=== PATIENT | female | born 1985 | race Caucasian/White ===

== ENCOUNTER 2020-01-08 10:35 | Outpatient (CLI) | payer OTHER, SELFPAY ==
[2020-01-08 11:17] LABS: Immunoglobulin A < 40 mg/dL (70-400)
== END 2020-01-08 10:36 | disposition home or self-care (01) ==
PROVIDERS: PCP Internal Medicine
DX: D83.9 Common variable immunodeficiency, unspecified (principal)
CPT/HCPCS: 36415; 82784

== ENCOUNTER 2020-05-08 12:37 | Outpatient (CLI) | payer OTHER, SELFPAY ==
[2020-05-08 13:22] LABS: Hematocrit 39.7 % (37.0-47.0); Hemoglobin 13.2 g/dL (12.0-15.0); Mean Corpuscular HGB Conc 33.2 g/dl (32-36); Mean Corpuscular Hemoglobin 29.9 pg (26-34); Platelet Count Result 210 k/mm3 (150-375); Red Blood Count 4.41 M/mm3 (4.2-5.4); Red Cell Distribution Width 12.2 % (11.5-14.5); White Blood Count 6.7 K/mm3 (4.5-10.0)
[2020-05-08 13:29] LABS: Urine Cotinine NEGATIVE
[2020-05-08 14:29] LABS: Alanine Aminotransferase 15 U/L (4-35); Albumin Level 4.7 g/dL (3.5-5.1); Alkaline Phosphatase 67 U/L (38-126); Anion Gap 10 mmol/L (8-16); Aspartate Amino Transferase 25 U/L (14-36); Bilirubin,Total 0.6 mg/dL (0.2-1.3); Blood Urea Nitrogen 12 mg/dL (7-17); CRP 1.1 mg/dL (<1.0); Calcium 9.1 mg/dL (8.4-10.2); Carbon Dioxide 26 mmol/L (22-30); Chloride 103 mmol/L (98-107); Estimated Glomerular Filt Rate > 60; Glucose 92 mg/dL (65-105); Potassium 3.3 mmol/L (3.4-5.0); Sodium 139 mmol/L (137-145)
[2020-05-08 14:33] LABS: Erythrocyte Sedimentation Rate 15 mm/hr (0-20)
== END 2020-05-08 12:38 | disposition home or self-care (01) ==
PROVIDERS: PCP Internal Medicine; Visit Provider Internal Medicine Gastroenterology
DX: D83.9 Common variable immunodeficiency, unspecified (principal); R10.30 Lower abdominal pain, unspecified; R14.0 Abdominal distension (gaseous)
CPT/HCPCS: 36415; 80053; 80307; 85027; 85652; 86140

== ENCOUNTER 2020-05-13 07:44 | Outpatient (CLI) | payer OTHER, SELFPAY | END 2020-05-13 07:45 | disposition home or self-care (01) | PROVIDERS: PCP Internal Medicine; Visit Provider Internal Medicine Gastroenterology | DX: R10.30 Lower abdominal pain, unspecified (principal); R19.8 Other specified symptoms and signs involving the digestive system and abdomen | CPT/HCPCS: 87015; 87045; 87046; 87177; 87207; 87209; 87427; 89055 ==

== ENCOUNTER 2020-05-29 14:56 | Outpatient (CLI) | payer OTHER, SELFPAY ==
--- NOTE | ~2020-05-29 | US_ITS ---
EXAMINATION: US abdomen complete DATE: 05/29/2020 15:51 INDICATION: Low abdominal pain. TECHNIQUE: Multiple grayscale and Doppler ultrasound images of the abdomen were obtained. COMPARISON: CT abdomen and pelvis 08/17/2017 FINDINGS: The visualized portions of the head and body of the pancreas are normal. The liver is eusebia l without focal lesion. No liver surface nodularity. There is normal flow in main portal vein. The ga llbladder is normal in size. No gallstones or gallbladder wall thickening. There was no sonographic M urphy sign. The common duct is normal and measures 3 mm. There is mild splenomegaly measuring 13.7 cm . The kidneys are normal in size. Abdominal aorta is normal in caliber. Inferior vena cava is normal. IMPRESSION: 1. Mild splenomegaly, stable from 08/17/2017. Reviewed, dictated and finalized at location A.
== END 2020-05-29 14:57 | disposition home or self-care (01) ==
LOC: ANHIMG 15:02
PROVIDERS: PCP Internal Medicine; Visit Provider Internal Medicine Gastroenterology
DX: R10.30 Lower abdominal pain, unspecified (principal); R14.0 Abdominal distension (gaseous); R19.8 Other specified symptoms and signs involving the digestive system and abdomen
CPT/HCPCS: 76700

== ENCOUNTER 2020-05-30 00:37 | Outpatient (CLI) | payer OTHER, SELFPAY ==
[2020-05-30 17:48] LABS: SARS-CoV-2 RNA PCR Negative
== END 2020-05-30 00:38 | disposition home or self-care (01) ==
LOC: ANHCOVIDDT 00:37
PROVIDERS: PCP Internal Medicine; Visit Provider Internal Medicine Gastroenterology
DX: Z01.812 Encounter for preprocedural laboratory examination (principal); Z20.828 Contact with and (suspected) exposure to other viral communicable diseases
CPT/HCPCS: 87635; C9803; U0003

== ENCOUNTER 2020-06-02 02:10 | Day surgery (SDC) | payer OTHER, SELFPAY ==
[2020-05-26 14:15] VITALS: BMI 31.2
[2020-06-02 07:01] VITALS: BP 124/86; PULSE 87; RESP 18; TEMP 36.3; O2SAT 99; BMI 33.0
[2020-06-02] MEDS: LACTATED RINGERS 1,000 ML 150 ML IV CONT (07:05)
--- NOTE | 2020-06-02 07:38 | WPDANESEPPF ---
Anes - Initial Pre Proc Eval Procedure: Operation Date: 06/02/20 08:00 Proposed Procedures p Esophagogastroduodenoscopy & Colonoscopy - Iván Dewitt MD Date/Time: 06/02/20 07:38 Surgeon: Iván Dewitt MD Pre Op Diagnosis: Lower Abdominal Pain, Bloating, Abdominal Distenti Patient Data Age: 34 Gender: F Height: 5 ft 3 in Weight: 84.5 kg Last Vital Signs Temp 97.3 F L 06/02/20 07:01 Pulse 87 06/02/20 07:01 Resp 18 06/02/20 07:01 BP 124/86 06/02/20 07:01 Pulse Ox 99 06/02/20 07:01 Allergies Allergy/AdvReac Type Severity Reaction Status Date / Time No Known Allergies Allergy Verified 06/02/20 06:58 Patient hx anesthesia problems: none Family hx anesthesia problems: none PMFSH Past Medical History Medical History (Updated 05/08/20 @ 12:06 by Iván Dewitt MD) Alternating constipation and diarrhea Bloating Common variable immunodeficiency Lower abdominal pain Social History Social History Smoking status: Never smoker Alcohol use details: RARELY Substance use: never Substance use type: does not use Living arrangements: with family Spiritual care concerns: No Anes - Eval Final PreProcedure Day of Procedure 06/02/20 07:38 Patient weight: overweight Heart: regular rate and rhythm Lungs: clear to auscultation Airway: Mallampati scale class II Neurological: alert and oriented Last oral intake: >/= 8 hours ASA classification: II Emergent: no Anesthetic plan: proceed Anesthesia type and monitoring: general GIVS and standard monitoring Informed Consent: The patient's anesthetic plan and its attendant risks and benefits were discussed with the patient/family/POA. Questions were solicited and answers provided to the satisfaction of the patient/family/POA.
--- NOTE | 2020-06-02 07:58 | WPDHPUPDATE1 ---
History and Physical Update Update Date/Time: 06/02/20 07:58 History and Physical has been reviewed, including an updated exam of the patient. There are NO changes in the patient's condition. Risks, benefits, and alternatives have been discussed and questions answered. Patient agrees to proceed with procedure.
[2020-06-02 08:43] VITALS: BP 93/35; PULSE 72; RESP 18; O2SAT 97
[2020-06-02 08:53] VITALS: BP 97/69; PULSE 63; RESP 18; O2SAT 97
[2020-06-02 09:03] VITALS: BP 104/46; PULSE 63; RESP 18; O2SAT 97
== END 2020-06-02 09:12 | disposition home or self-care (01) ==
PROVIDERS: PCP Internal Medicine; Visit Provider Internal Medicine Gastroenterology
PROC: 0DJ08ZZ Inspection of Upper Intestinal Tract, Via Natural or Artificial Opening Endoscopic (ICD-10-PCS; CPT 43235; principal; 2020-06-02 08:00)
DX: R10.84 Generalized abdominal pain (principal); R19.7 Diarrhea, unspecified; K59.00 Constipation, unspecified; K29.50 Unspecified chronic gastritis without bleeding
CPT/HCPCS: 43239; 45380; 88305; J2704; J7120

== ENCOUNTER 2022-09-12 15:36 | Outpatient (CLI) | payer OTHER, SELFPAY ==
[2022-09-12 18:44] LABS: Immunoglobulin G 863 mg/dL (700-1600)
== END 2022-09-12 15:37 | disposition home or self-care (01) ==
LOC: ANHLAB 15:39
PROVIDERS: PCP Internal Medicine
DX: D83.9 Common variable immunodeficiency, unspecified (principal)
CPT/HCPCS: 36415; 82784

== ENCOUNTER 2022-10-04 11:31 | Outpatient (CLI) | payer OTHER, SELFPAY ==
--- NOTE | ~2022-10-04 | XR_ITS ---
EXAMINATION: XR chest 2V DATE: 10/04/2022 12:12 INDICATION: Cough TECHNIQUE: Frontal and lateral views of the chest are obtained COMPARISON: 10/16/2019 FINDINGS: The lungs are free of acute opacities. No pleural effusion or pneumothorax. The cardiomedia stinal silhouette is normal. There is mild thoracic spondylosis. There is mild chronic anterior wedgi ng of lower thoracic vertebral bodies. IMPRESSION: 1. No acute cardiopulmonary abnormality. Reviewed, dictated and finalized at location L. ER MANAGER
[2022-10-04 11:56] LABS: Hematocrit 42.7 % (35.0-49.0); Hemoglobin 13.9 g/dL (12.0-15.0); Immature Granulocyte Absolute 0.02 K/mm3 (0.00-0.00); Immature Granulocyte Percent A 0.3 % (0.0-0.0); Lymphocytes Absolute Auto 0.67 K/mm3 (1.10-4.50); Lymphocytes Percent Auto 9.9 % (18.0-42.0); Mean Corpuscular HGB Conc 32.6 g/dL (32.0-36.0); Mean Corpuscular Hemoglobin 29.6 pg (27.0-31.0); Mean Platelet Volume 10.8 fl (9.2-11.8); Monocytes Absolute Auto 0.62 K/mm3 (0.10-0.90); Monocytes Percent Auto 9.1 % (2.0-11.0); Neutrophils Absolute Auto 5.5 K/mm3 (1.7-7.2); Neutrophils Percent Auto 80.7 % (50.0-70.0); Platelet Count Result 196 K/mm3 (150-420); Red Blood Count 4.69 M/mm3 (4.20-5.40); Red Cell Distribution Width 12.4 % (11.6-14.4); White Blood Count 6.8 K/mm3 (4.8-10.8)
[2022-10-04 12:10] LABS: Alanine Aminotransferase 24 U/L (14-59); Albumin Level 4.3 g/dL (3.4-5.0); Alkaline Phosphatase 72 U/L (46-116); Anion Gap 9 mmol/L (8-16); Aspartate Amino Transferase 15 U/L (15-37); Bilirubin,Total 0.6 mg/dL (0.00-1.00); Blood Urea Nitrogen 8 mg/dL (7-18); Calcium 8.7 mg/dL (8.5-10.1); Carbon Dioxide 29 mmol/L (21-32); Chloride 102 mmol/L (98-108); Estimated Glomerular Filt Rate > 60; Glucose 109 mg/dL (70-99); Osmolality Calculated 289 mOsm/kg (285-295); Potassium 3.5 mmol/L (3.5-5.1); Sodium 140 mmol/L (136-145); Total Protein 7.7 g/dL (6.4-8.2)
== END 2022-10-04 11:32 | disposition home or self-care (01) ==
LOC: CHSLAB 11:33
PROVIDERS: PCP Internal Medicine; Visit Provider Internal Medicine
DX: R05.9 Cough, unspecified (principal)
CPT/HCPCS: 36415; 71046; 80053; 85025

== ENCOUNTER 2022-11-14 07:56 | Outpatient (CLI) | payer OTHER, SELFPAY ==
--- NOTE | ~2022-11-14 | CT_ITS ---
EXAMINATION: CT sinus wo con DATE: 11/14/2022 08:15 INDICATION: Chronic sinusitis TECHNIQUE: Computed tomography (CT) of the paranasal sinuses was performed without intravenous contra st. Coronal reconstructions were obtained. Iterative reconstruction technique was employed. The dose- length product was 203.72 mGy-cm. COMPARISON: None FINDINGS: Moderate mucosal thickening and mild sclerotic wall thickening at the left maxillary sinus consistent with chronic sinusitis. Mild mucosal thickening in the right maxillary and bilateral ethmoid sinuses . Ostiomeatal units are patent bilaterally. Mild leftward bowing of the nasal septum which parallels the contours of the turbinates. There is also a leftward osseous spike along the nasal septum. Orbits are normal. Mastoid air cells and middle ear cavities are clear. IMPRESSION: 1. Stigmata of chronic sinusitis in the left maxillary sinus where there is moderate mucosal thickeni ng. Mild mucosal thickening in the right maxillary and bilateral ethmoid sinuses. Reviewed, dictated and finalized at location B. IMPRESSION: 1. Stigmata of chronic sinusitis in the left maxillary sinus where there is mod erate mucosal thickening. Mild mucosal thickening in the right maxillary and bi lateral ethmoid sinuses.
== END 2022-11-14 07:57 | disposition home or self-care (01) ==
PROVIDERS: PCP Internal Medicine; Visit Provider Internal Medicine
DX: J32.9 Chronic sinusitis, unspecified (principal)
CPT/HCPCS: 70486

== ENCOUNTER 2023-03-20 12:22 | Outpatient (RCR) | payer OTHER, SELFPAY ==
[2023-03-20 13:47] LABS: Immunoglobulin G 735 mg/dL (700-1600)
== END 2023-06-18 23:59 | disposition home or self-care (01) ==
LOC: ANHLAB 12:22
PROVIDERS: PCP Internal Medicine
DX: D83.9 Common variable immunodeficiency, unspecified (principal)
CPT/HCPCS: 36415; 82784

== ENCOUNTER 2023-03-23 10:37 | Outpatient (CLI) | payer OTHER, SELFPAY ==
[2023-03-23 11:50] LABS: Immunoglobulin G 1322 mg/dL (700-1600)
== END 2023-03-23 10:38 | disposition home or self-care (01) ==
LOC: ANHLAB 10:40
PROVIDERS: PCP Internal Medicine
DX: D83.9 Common variable immunodeficiency, unspecified (principal)
CPT/HCPCS: 36415; 82784

== ENCOUNTER 2023-03-30 12:21 | Outpatient (CLI) | payer OTHER, SELFPAY ==
[2023-03-30 13:57] LABS: Hematocrit 39.9 % (37.0-47.0); Hemoglobin 13.2 g/dL (12.0-15.0); Immature Granulocyte Absolute 0.01 K/mm3 (0.00-0.031); Immature Granulocyte Percent A 0.2 % (0-0.5); Lymphocytes Absolute Auto 1.61 K/mm3 (0.9-3.2); Lymphocytes Percent Auto 37.4 % (18.3-44.2); Mean Corpuscular HGB Conc 33.1 g/dl (32-36); Mean Corpuscular Hemoglobin 30.2 pg (26-34); Mean Corpuscular Volume 91.3 fl (80-100); Monocytes Absolute Auto 0.4 K/mm3 (0.1-0.6); Monocytes Percent Auto 8.6 % (2.6-8.5); Neutrophils Absolute Auto 2.3 K/mm3 (1.3-6.7); Neutrophils Percent Auto 53.8 % (45.5-73.1); Platelet Count Result 173 k/mm3 (150-375); Red Blood Count 4.37 M/mm3 (4.2-5.4); Red Cell Distribution Width 12.3 % (11.5-14.5); White Blood Count 4.3 K/mm3 (4.5-10.0)
[2023-03-30 14:12] LABS: Alanine Aminotransferase 26 U/L (6-35); Albumin Level 4.4 g/dL (3.5-5.1); Alkaline Phosphatase 48 U/L (38-126); Anion Gap 8 mmol/L (8-16); Aspartate Amino Transferase 30 U/L (14-36); Bilirubin,Total 0.4 mg/dL (0.2-1.3); Blood Urea Nitrogen 13 mg/dL (7-17); Carbon Dioxide 26 mmol/L (22-30); Chloride 102 mmol/L (98-107); Estimated Glomerular Filt Rate > 60; Glucose 86 mg/dL (65-110); Potassium 3.5 mmol/L (3.4-5.0); Sodium 136 mmol/L (137-145)
[2023-03-30 17:14] LABS: Free T4 Free Thyroxine 1.21 ng/mL (0.78-2.19)
== END 2023-03-30 12:22 | disposition home or self-care (01) ==
PROVIDERS: PCP Internal Medicine
DX: D83.9 Common variable immunodeficiency, unspecified (principal)
CPT/HCPCS: 36415; 80053; 84439; 85025

== ENCOUNTER 2023-08-16 11:14 | Outpatient (CLI) | payer OTHER, SELFPAY ==
[2023-08-16 11:41] LABS: Basophils Absolute Auto 0.01 K/mm3 (0.00-0.10); Basophils Percent Auto 0.1 % (0.0-1.0); Hematocrit 40.4 % (35.0-49.0); Hemoglobin 13.2 g/dL (12.0-15.0); Immature Granulocyte Absolute 0.02 K/mm3 (0.00-0.00); Immature Granulocyte Percent A 0.3 % (0.0-0.0); Lymphocytes Absolute Auto 0.86 K/mm3 (1.10-4.50); Lymphocytes Percent Auto 12.4 % (18.0-42.0); Mean Corpuscular HGB Conc 32.7 g/dL (32.0-36.0); Mean Corpuscular Hemoglobin 29.9 pg (27.0-31.0); Mean Corpuscular Volume 91.4 fL (78.0-102.0); Mean Platelet Volume 10.5 fl (9.2-11.8); Monocytes Absolute Auto 0.69 K/mm3 (0.10-0.90); Monocytes Percent Auto 9.9 % (2.0-11.0); Neutrophils Absolute Auto 5.4 K/mm3 (1.7-7.2); Neutrophils Percent Auto 77.3 % (50.0-70.0); Platelet Count Result 176 K/mm3 (150-420); Red Blood Count 4.42 M/mm3 (4.20-5.40); Red Cell Distribution Width 12.2 % (11.6-14.4)
[2023-08-16 12:00] LABS: Alanine Aminotransferase 23 U/L (14-59); Albumin Level 4.1 g/dL (3.4-5.0); Alkaline Phosphatase 56 U/L (46-116); Anion Gap 6 mmol/L (8-16); Aspartate Amino Transferase 17 U/L (15-37); Bilirubin,Total 0.5 mg/dL (0.00-1.00); Blood Urea Nitrogen 6 mg/dL (7-18); Calcium 8.9 mg/dL (8.5-10.1); Carbon Dioxide 29 mmol/L (21-32); Chloride 100 mmol/L (98-108); Estimated Glomerular Filt Rate > 60; Glucose 92 mg/dL (70-99); Osmolality Calculated 277 mOsm/kg (285-295); Potassium 3.6 mmol/L (3.5-5.1); Sodium 135 mmol/L (136-145); Total Protein 7.3 g/dL (6.4-8.2)
== END 2023-08-16 11:15 | disposition home or self-care (01) ==
LOC: CHSLAB 11:17
PROVIDERS: PCP Internal Medicine; Visit Provider Internal Medicine
DX: R11.0 Nausea (principal); R50.9 Fever, unspecified
CPT/HCPCS: 36415; 80053; 85025

== ENCOUNTER 2023-09-05 15:23 | Outpatient (CLI) | payer OTHER, SELFPAY ==
[2023-09-05 16:09] LABS: Alanine Aminotransferase 17 U/L (6-35); Albumin Level 4.5 g/dL (3.5-5.1); Alkaline Phosphatase 52 U/L (38-126); Anion Gap 8 mmol/L (8-16); Aspartate Amino Transferase 24 U/L (14-36); Bilirubin,Total 0.4 mg/dL (0.2-1.3); Blood Urea Nitrogen 16 mg/dL (7-17); Calcium 9.2 mg/dL (8.4-10.2); Carbon Dioxide 28 mmol/L (22-30); Chloride 102 mmol/L (98-107); Estimated Glomerular Filt Rate > 60; Glucose 84 mg/dL (65-110); Hematocrit 39.9 % (37.0-47.0); Hemoglobin 13.1 g/dL (12.0-15.0); Immature Granulocyte Absolute 0.01 K/mm3 (0.00-0.031); Immature Granulocyte Percent A 0.2 % (0-0.5); Lymphocytes Absolute Auto 2.07 K/mm3 (0.9-3.2); Mean Corpuscular HGB Conc 32.8 g/dl (32-36); Mean Corpuscular Volume 91.3 fl (80-100); Mean Platelet Volume 10.6 fl (7.4-10.4); Monocytes Absolute Auto 0.5 K/mm3 (0.1-0.6); Monocytes Percent Auto 8.3 % (2.6-8.5); Neutrophils Absolute Auto 3.7 K/mm3 (1.3-6.7); Neutrophils Percent Auto 58.5 % (45.5-73.1); Platelet Count Result 226 k/mm3 (150-375); Potassium 3.9 mmol/L (3.4-5.0); Red Blood Count 4.37 M/mm3 (4.2-5.4); Red Cell Distribution Width 12.6 % (11.5-14.5); Sodium 138 mmol/L (137-145); White Blood Count 6.3 K/mm3 (4.5-10.0)
[2023-09-05 16:32] LABS: Immunoglobulin G 689 mg/dL (700-1600)
[2023-09-05 17:32] LABS: Free T4 Free Thyroxine 1.25 ng/mL (0.78-2.19)
== END 2023-09-05 15:24 | disposition home or self-care (01) ==
PROVIDERS: PCP Internal Medicine
DX: D83.9 Common variable immunodeficiency, unspecified (principal)
CPT/HCPCS: 36415; 80053; 82784; 84439; 85025

== ENCOUNTER 2023-09-22 16:10 | Outpatient (CLI) | payer OTHER, SELFPAY ==
--- NOTE | ~2023-09-22 | XR_ITS ---
XR_CERV2-3V_CR DATE: 09/22/2023 16:31 INDICATION: Left neck pain radiating to shoulder and arm TECHNIQUE: AP, open-mouth, lateral views COMPARISON: None FINDINGS: There is mild reversal cervical curvature. C1 and C2 are normally aligned and the odontoid process is intact. No fracture or dislocation or lock ed facet or prevertebral soft tissue swelling. There is minimal anterolisthesis at C4-5. There is minimal loss of height at C5-6 interspace. Remaining cervical interspaces appear well preser shae. Elongated C7 transverse processes. IMPRESSION: Mild reversal of cervical curvature Minimal anterolisthesis at C4-5 Minimal loss of height at C5-6 interspace Reviewed, dictated and finalized at Location A. Reviewed, dictated and finalized at location A. OMER GREETER
== END 2023-09-22 16:11 | disposition home or self-care (01) ==
LOC: CHSIMG 16:12
PROVIDERS: PCP Internal Medicine; Visit Provider Internal Medicine
DX: M54.2 Cervicalgia (principal); M43.8X2 Other specified deforming dorsopathies, cervical region; M43.12 Spondylolisthesis, cervical region
CPT/HCPCS: 72040

== ENCOUNTER 2023-10-09 14:31 | Outpatient (CLI) | payer OTHER, SELFPAY ==
--- NOTE | ~2023-10-09 | MM_ITS ---
EXAMINATION: MM screening kamala BI w katherine HISTORY: Screening mammogram TECHNIQUE: Craniocaudal and mediolateral oblique 3-D tomosynthesis images were obtained and synthetic 2-D images were generated. CAD analysis was submitted and interpreted. COMPARISON: No prior mammogram is available for comparison at this institution. BREAST PARENCHYMAL COMPOSITION: The breasts are heterogeneously dense, which may obscure small masses . FINDINGS: There is no evidence of suspicious mass, calcification, or architectural distortion to sugg est malignancy in either breast. IMPRESSION: 1. No mammographic evidence of malignancy. 2. Recommend routine screening mammography in one year. BI-RADS Category 1: Negative Reviewed, dictated and finalized at location B. MECHANIC
== END 2023-10-09 14:32 | disposition home or self-care (01) ==
LOC: ANHIMG 14:32
PROVIDERS: PCP Internal Medicine; Visit Provider Obstetrics & Gynecology
DX: Z12.31 Encounter for screening mammogram for malignant neoplasm of breast (principal)
CPT/HCPCS: 77063; 77067

== ENCOUNTER 2024-04-09 09:55 | Outpatient (CLI) | payer OTHER, SELFPAY ==
[2024-04-09 11:02] LABS: Immunoglobulin G 902 mg/dL (700-1600)
== END 2024-04-09 09:56 | disposition home or self-care (01) ==
LOC: ANHLAB 09:57
PROVIDERS: PCP Internal Medicine
DX: D83.9 Common variable immunodeficiency, unspecified (principal)
CPT/HCPCS: 36415; 82784

== ENCOUNTER 2024-06-25 13:35 | Outpatient (CLI) | payer OTHER, SELFPAY ==
--- NOTE | ~2024-06-25 | MMUS_ITS ---
EXAMINATION: MM diagnostic kamala LT w katherine, US breast LT limited HISTORY: Palpable left breast lump TECHNIQUE: Additional 3-D tomosynthesis images of the left breast were performed and synthetic 2-D im ages were generated. CAD analysis was submitted and interpreted. High resolution Limited left breast ultrasound was performed. COMPARISON: 10/09/2023 BREAST PARENCHYMAL COMPOSITION: Not dense: There are scattered areas of fibroglandular density. FINDINGS: MAMMOGRAPHIC FINDINGS: There are no suspicious masses, calcifications or architectural distortion in the left breast to sugg est malignancy. ULTRASOUND: Limited left breast ultrasound: Normal heterogeneous echotexture without focal solid or cystic mass. IMPRESSION: 1. No evidence for malignancy in the left breast. 2. Routine yearly screening mammogram and regular clinical breast examination are recommended. BI-RADS Category 1: Negative Reviewed, dictated and finalized at location B. IMPRESSION: 1. No evidence for malignancy in the left breast. 2. Routine yearly screening mammogram and regular clinical breast examination a re recommended. BI-RADS Category 1: Negative
== END 2024-06-25 13:36 | disposition home or self-care (01) ==
LOC: ANHIMG 13:36
PROVIDERS: PCP Internal Medicine; Visit Provider Obstetrics & Gynecology
DX: N63.25 Unspecified lump in the left breast, overlapping quadrants (principal)
CPT/HCPCS: 76642; 77061; 77065; G0279

== ENCOUNTER 2025-01-31 07:34 | Outpatient (CLI) | payer OTHER, SELFPAY ==
--- NOTE | ~2025-01-31 | MM_ITS ---
EXAMINATION: MM screening kamala BI w katherine HISTORY: Screening TECHNIQUE: Craniocaudal and mediolateral oblique 3-D tomosynthesis images were obtained and synthetic 2-D images were generated. CAD analysis was submitted and interpreted. COMPARISON: Comparison to multiple prior studies sequentially, with oldest reviewed study dated 01/2024. BREAST PARENCHYMAL COMPOSITION: Dense: The breasts are heterogeneously dense, which may obscure small masses FINDINGS: There is no evidence of suspicious mass, calcification, or architectural distortion to sugg est malignancy in either breast. There has been no suspicious interval change. IMPRESSION: 1. No mammographic evidence of malignancy. 2. Recommend routine screening mammography in one year. BI-RADS Category 1: Negative Reviewed, dictated and finalized at location A.
--- OUTSIDE RECORDS SUMMARY | 2025-01-31 07:38 | XMS_ITS | Referral Summary ---
Author Organization [facility] Address [address] [place] [address] Care Team Providers Care Automatic Nailing Machine Feeder Name Role Phone Nitza Lamas MD Primary Care Provider [phone] Encounters Date Type Department Care Team Description 01/14/2025 2:45 PM CDT Office Visit [facility] Allergy and Immunology [address] [place] [address] Ruby Mercer MD CVID (common variable immunodeficiency) (HCC) (Primary Dx); Other chronic sinusitis 11/05/2024 Telephone [facility] Allergy and Immunology [address] [place] [address] Allison Horton RN Med Management from Last 3 Months Allergies No known active allergies Medications ibuprofen (ADVIL,MOTRIN) 600 mg tablet as needed 04/04/20 18 Active levonorgestreL (Mirena) IUD Mirena 20 mcg/24 hours (5 yrs) 52 mg intrauterine device Active immune globulin (GAMMAGARD S-D) infusion Infuse 700 mL (35 g total) into a venous catheter every 4 (four) weeks 700 mL 11 11/18/19 23 Active valACYclovir (VALTREX) 500 mg tablet Take 1 tablet (500 mg total) by mouth 2 (two) times a day 30 tablet 5 01/21/20 23 Active fluticasone propionate (FLONASE) 50 mcg/actuation nasal spray Administer 2 sprays into each nostril daily 16 g 11 10/03/19 24 Active montelukast (SINGULAIR) 10 mg tablet 07/22/20 24 Active ondansetron ODT (ZOFRAN-ODT) 4 mg disintegrating tablet Take 1 tablet (4 mg total) by mouth every 8 (eight) hours as needed 12/27/19 25 Active Active Problems Problem Noted Date Diagnosed Date 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 05/11/2018 Non-allergic rhinitis 05/11/2018 Dyspnea 05/11/2018 CVID (common variable immunodeficiency) 01/11/20 18 Cough Immunizations Immunization Administration Dates Next Due Influenza, Quadrivalent, Claudine l Culture-based MDCK, Preservative Free, Antibiotic Free, Intramuscular 07/18/2019 Social History Tobacco Use Types Packs/Day Years Used Date Smoking Tobacco: Never Passive Smoke Exposure: Never Smokeless Tobacco: Never Tobacco Cessation:Counseling Given: Not Answered Comments Unknown Sex and Gender Information Value Date Recorded Sex Assigned at Not on file Legal Sex Female 1:28 PM CDT Gender Identity Not on file Sexual Orientation Not on file Last Filed Vital Signs Vital Sign Reading Time Taken Comments Blood Pressure 121/80 01/14/2025 2:48 PM CDT Pulse 79 01/14/2025 2:48 PM CDT Temperature 36.6 C (97.8 F) 01/14/2025 2:48 PM CDT Respiratory Rate - - Oxygen Saturation 97% 01/14/2025 2:48 PM CDT Inhaled Oxygen Concentration - - Weight 80 kg (176 lb 6.4 oz) 01/14/2025 2:48 PM CDT Height 160 cm (5' 3) 01/14/2025 2:48 PM CDT Body Mass Index 31.25 01/14/2025 2:48 PM CDT Plan of Treatment Not on file Insurance [facility] CHOICE PLUS Care Teams Automatic Nailing Machine Feeder Relationship Specialty Start Date End Date Nitza Lamas MD [address] [place] [address] PCP - General 03/21/17
--- OUTSIDE RECORDS SUMMARY | 2025-01-31 07:38 | XMS_ITS | Clinical Summary ---
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 05/11/2018 Non-allergic rhinitis 05/11/2018 Dyspnea 05/11/2018 CVID (common variable immunodeficiency) 01/11/20 18 Cough Encounters Date Type Department Care Team Description 01/14/2025 2:45 PM CDT Office Visit [facility] Allergy and Immunology [address] [place] [address] Ruslan, Ruby Holm MD CVID (common variable immunodeficiency) (HCC) (Primary Dx); Other chronic sinusitis 11/05/2024 Telephone [facility] Allergy and Immunology [address] [place] [address] Allison Horton RN Med Management from Last 3 Months Immunizations Immunization Administration Dates Next Due Influenza, Quadrivalent, Claudine l Culture-based MDCK, Preservative Free, Antibiotic Free, Intramuscular 07/18/2019 Medical History Medical History Date Comments Other specified postprocedural states History of dilatation and curettage - (Added by TW Conv) Family History Medical History Relation Name Comments Hyperlipidemia Father High choleste rol - (Added by TW Conv) Hypertension Father Family history of hypertension - (Added by TW Conv) Sarcoidosis Father Family history of sarcoidosis - (Added by TW Conv) Diabetes Mother Family history of diabetes mellitus - (Added by TW Conv) Relation Name Status Comments Father Mother Social History Tobacco Use Types Packs/Day Years Used Date Smoking Tobacco: Never Passive Smoke Exposure: Never Smokeless Tobacco: Never Tobacco Cessation:Counseling Given: Not Answered Comments Unknown Sex and Gender Information Value Date Recorded Sex Assigned at Not on file Legal Sex Female 1:28 PM CDT Gender Identity Not on file Sexual Orientation Not on file Obstetrics History Last Filed Vital Signs Vital Sign Reading [...] 01/14/2025 2:48 PM CDT Plan of Treatment Health Maintenance Due Date Last Done Comments Breast Cancer Screening-Mammogram 1983 Cervical Cancer Screening 1983 Depression Screening 1983 Hepatitis C Screening 1983 DTaP/Tdap/Td Vaccine (1 - Tdap) 1994 Varicella Vaccines (1 of 2 - 13+ 2-dose series) 1996 Hepatitis B Screening 2001 Regular Well Visit/Exam 18-64 2001 Zoster Vaccine (1 of 2) 2002 Pneumococcal vaccine <65 (2 of 2 - PCV) 03/21/2018 03/21/2017 Influenza Vaccine (Season Ended) 2025 07/18/2019, 06/25/2018 HPV Vaccines Aged Out No longer eligi ble based on patient's age to complete this topic Insurance [facility]/PP[facility] Address: [address] [address] [place] [address] [facility] CHOICE PLUS [facility] HMO/PPO Address: [address] [address] [place] [address] Care Teams Dope House Operator Helper Relationship Specialty Start Date End Date Nitza Lamas MD [address] [place] [address] PCP - General 03/21/17
--- OUTSIDE RECORDS SUMMARY | 2025-01-31 07:38 | XMS_ITS | Encounter Summary ---
Author Organization [facility] Address [address] [place] [address] Phone Care Team Providers Care Business Systems Manager Name Role Phone Nitza Lamas MD Primary Care Provider [phone] Encounter Details Date Type Department Care Team (Latest Contact Info) Description 03/30/2023 Orders Only [facility] Scanning, Provider Social History Tobacco Use Types Packs/Day Years Used Date Smoking Tobacco: Never Smokeless Tobacco: Never Comments Unknown Sex and Gender Information Value Date Recorded Sex Assigned at Not on file Legal Sex Female 1:28 PM CDT Gender Identity Not on file Sexual Orientation Not on file documented as of this encounter Plan of Treatment Not on file documented as of this encounter Procedures Procedure Name Priority Date/Time Associated Diagnosis Comments SCAN - LABS 03/30/2023 documented in this encounter Results * SCAN - LABS (03/30/2023) us Provider Scanning Final Result documented in this encounter Visit Diagnoses Not on filedocumented in this encounter Care Teams Business Systems Manager Relationship Specialty Start Date End Date Nitza Lamas MD [address] [place] [address] PCP - General 03/21/17 documented as of this encounter
--- OUTSIDE RECORDS SUMMARY | 2025-01-31 07:38 | XMS_ITS | Encounter Summary ---
Author Organization [facility] Address [address] [place] [address] Phone Care Team Providers Care Medical Social Consultant Name Role Phone Nitza Lamas MD Primary Care Provider [phone] Encounter Details Date Type Department Care Team (Latest Contact Info) Description 06/22/2021 Orders Only [facility] Scanning, Provider [...] Date/Time Associated Diagnosis Comments SCAN - LABS 06/22/2021 documented in this encounter Results * SCAN - LABS (06/22/2021) us Provider Scanning Edited Result - Final documented in this encounter Visit Diagnoses Not on filedocumented in this encounter Care Teams Medical Social Consultant Relationship Specialty Start Date End Date Nitza Lamas MD [address] [place] [address] PCP - General 03/21/17 documented as of this encounter
== END 2025-01-31 07:35 | disposition home or self-care (01) ==
LOC: ANHIMG 07:36
PROVIDERS: PCP Internal Medicine; Visit Provider Obstetrics & Gynecology
DX: Z12.31 Encounter for screening mammogram for malignant neoplasm of breast (principal)
CPT/HCPCS: 77063; 77067

== ENCOUNTER 2025-05-10 11:23 | Emergency (ER) | payer OTHER, SELFPAY ==
--- OUTSIDE RECORDS SUMMARY | 2025-05-10 11:26 | XMS_ITS | Encounter Summary ---
Author Organization [facility] Address [address] [place] [address] Phone Care Team Providers Care Box Sealing Machine Operator Name Role Phone Nitza Lamas MD Primary Care Provider [phone] Encounter Details Date Type Department Care Team [...] on filedocumented in this encounter Care Teams Box Sealing Machine Operator Relationship Specialty Start Date End Date Nitza Lamas MD [address] [place] [address] PCP - General 03/21/17 documented as of this encounter
--- OUTSIDE RECORDS SUMMARY | 2025-05-10 11:26 | XMS_ITS | Encounter Summary ---
Author Organization [facility] Address [address] [place] [address] Phone Care Team Providers Care Stenocaptioner Name Role Phone Nitza Lamas MD Primary Care Provider [phone] Encounter Details Date Type Department Care Team [...] on filedocumented in this encounter Care Teams Stenocaptioner Relationship Specialty Start Date End Date Nitza Lamas MD [address] [place] [address] PCP - General 03/21/17 documented as of this encounter
--- NOTE | 2025-05-10 11:29 | ED_ITS ---
HPI - General Adult General Chief complaint: Upper Respiratory Infection Stated complaint: Sinus Infection / Ear Pain Time Seen by Provider: 05/10/25 11:29 Source: patient Mode of arrival: ambulatory Limitations: no limitations History of Present Illness HPI narrative: 39-year-old female patient presents to the [facility] with complaints of right ear pain for about a week. Patient states she has also had a runny nose, cough, fatigue, sore throat and last night she thinks she was running a fever because in the middle the night she ended up getting some chills. Patient states she did take some [place] cold and flu this morning and states that she felt like her fever had broken. Patient states she never measured her fever. Patient does have an immuno deficiency issue and does get infusions for this. Patient states she does get sick a lot due to this. Denies taking any vitamins or minerals to help with the immune system. Related Data Home Medications ?Medication ?Instructions ?Recorded ?Confirmed ?Last Taken ?Type immune glob,gamma (IgG) 10 35 g IV MONTHLY 05/24/23 Unknown History %-gly-IgA over 50 mcg/mL injection solution (Gammagard Liquid) immune glob,gamma(IgG) 10 IV 05/10/25 Unknown History [id number]-IgA 0 to 50 mcg/mL IV solution (Gammagard S-D (IgA < 1 mcg/mL)) ondansetron 4 mg disintegrating mg 05/10/25 Unknown H istory tablet Allergies Allergy/AdvReac Type Severity Reaction Status Date / Time No Known Allergies Allergy Verified 05/10/25 11:27 Review of Systems Review of Systems: CONSTITUTIONAL: Positive subjective fever and chills, denies sweats. EYES: Denies visual changes, redness, or discharge. ENT: positive rhinorrhea, congestion, sore throat, positive right otalgia. CARDIOVASCULAR: Denies chest pain, palpitations, or edema. RESPIRATORY: positive cough , denies dyspnea. GASTROINTESTINAL: Denies abdominal pain, nausea, positive 1 episode of vomiting, denies diarrhea. GENITOURINARY: Denies dysuria or hematuria. SKIN: Denies rash or itching. MUSCULOSKELETAL: Denies back pain, joint pain, or myalgia. NEUROLOGIC: Denies headache, numbness, or weakness. PSYCHIATRIC: Denies anxiety or depression. [facility], [facility] Past Medical History Medical History Common variable immunodeficiency Alternating constipation and diarrhea Bloating Lower abdominal pain Surgical History Surgical History H/O gynecological procedure mirena iud removal / reinsertion 11/10/2021 Family History Family History Father Hypertension Mother Hypertension Heart disease Grandparent Diabetes mellitus Hypertension Heart disease Grandparent Diabetes mellitus Hypertension Heart disease Social History Social History Smoking status: Never smoker Alcohol intake: never Alcohol use details: RARELY Substance use: never Substance use type: does not use Do You Feel Safe in your Home?: Yes Lack of Transportation: No Lack of Food: Never True Current Housing: I Have Housing Concerned About Future Housing: No Difficulty Paying Gas/Electric Bills: No Difficulty Paying for Meds: No Currently Unemployed: No Education: Associate Degree Difficulty w/ Childcare or Family Care: No Living arrangements: with family Occupation/Education: occupation Additional occupation/education comments: RN Gender identity (if verbalized by the patient): Female Sexual Orientation (if Verbalized by the Patient): Straight or Heterosexual Spiritual care concerns: No Comments At the time of my signature I agree with nursing past medical history, surgical, social, and family history. There is no relevant family history pertinent to the presenting complaint. Exam Narrative: GENERAL: Well-appearing, well-nourished, and in no acute distress. HEAD: Normocephalic, atraumatic. EYES: PERRLA and EOMI. ENT: Nares with erythema edema noted bilaterally, no rhinorrhea or epistaxis. Mucous membranes moist. posterior pharynx with slight erythema no tonsillar enlargement, no exudates or lesions. Fluid noted behind the tympanic membrane of the right ear. Left ear was clear. NECK: Supple. Mild cervical lymphadenopathy CHEST: Clear to auscultation. No respiratory distress. HEART: Regular rate and rhythm. No murmur heard. Normal peripheral pulses. ABDOMEN: Soft, nontender, nondistended, normal active bowel sounds. EXTREMITIES: Normal range of motion. No edema. SKIN: Warm, dry, no rash. NEURO: No focal deficits. Alert and oriented x3. Course Course Level of Care: Express Care Visit Reevaluation(s) Reevaluation #1: Re-evaluated patient notified her that her swabs all came back negative. Discussed with her I do believe she most likely has a viral infection however given her medical history we will go ahead and provide her a wait and see azithromycin antibiotic. Discussed with patient I highly recommend using [id number] Flonase and Zyrtec to help with the fluid behind the ear and using some vitamins such as vitamin-C, vitamin-D and zinc to help shorten the course of the viral infection. Discussed with patient that if she feels that her symptoms are worsening then she can take the azithromycin and a day or 2. Patient verbalized understanding of this denies any other questions or concerns at this time Date: 05/10/25 Time: 12:09 Vital Signs Vital signs: Vital Signs Temperature 36.3 C L 05/10/25 11:32 Pulse Rate 109 H 05/10/25 11:32 Respiratory Rate 18 05/10/25 11:32 Blood Pressure 127/80 05/10/25 11:32 Pulse Oximetry 98 05/10/25 11:32 Oxygen Delivery Room Air 05/10/25 11:32 Temperature 36.3 C L 05/10/25 11:32 Pulse Rate 109 H 05/10/25 11:32 Respiratory Rate 18 05/10/25 11:32 Blood Pressure 127/80 05/10/25 11:32 Pulse Oximetry 98 05/10/25 11:32 Oxygen Delivery Room Air 05/10/25 11:32 Vital signs reviewed. Medical Decision Making MDM Narrative Medical decision making narrative: plan of care for patient is to swab her today for COVID, influenza and strep since she does have an immune compromising medical history as well as she is reporting subjective fevers. I will reassess patient was this has resulted. Differential Diagnosis Differential Diagnosis: Differential diagnosis: Otitis media, otitis externa, perforated TM, infection of the outer ear, foreign body or cerumen impaction, ruptured TM, acute mastoiditis, ligament otitis externa, dehydration, pneumonia, sepsis, dental or intraoral infection, TMJ dysfunction Vital Signs Vital Signs: Vital Signs Temperature 36.3 C L 05/10/25 11:32 Pulse Rate 109 H 05/10/25 11:32 Respiratory Rate 18 05/10/25 11:32 Blood Pressure 127/80 05/10/25 11:32 Pulse Oximetry 98 05/10/25 11:32 Oxygen Delivery Room Air 05/10/25 11:32 Temperature 36.3 C L 05/10/25 11:32 Pulse Rate 109 H 05/10/25 11:32 Respiratory Rate 18 05/10/25 11:32 Blood Pressure 127/80 05/10/25 11:32 Pulse Oximetry 98 05/10/25 11:32 Oxygen Delivery Room Air 05/10/25 11:32 Lab Data Labs: Lab Results 05/10/25 Range/Units 11:54 POC Grp A Strep Screen Negative (Negative) Critical Care Time Critical Care Time Critical Care Time: No Discharge Plan Discharge Clinical Impression: Viral URI with cough Patient Disposition: Home Condition: Stable Instructions: Antibiotic Form, Upper Respiratory Infection (DC) Additional Instructions: Viral illness may last between 7-12days; antibiotic is NOT recommended at this time. however we will provide do a wait and see prescription for azithromycin and if your symptoms continue to worsen please take the antibiotic. Recommend antihistamine such as Benadryl at night time and Claritin/Zyrtec/Tricia during the day Cough syrup may cause drowsiness; avoid driving or take it at night time. Use inhaler as needed for cough, wheezing, shortness of breath or chest tightness. Also, recommend symptomatic treatment includes: rest, fluids, and increase humidity of the air at home. Recommend Acetaminophen or nonsteroidal anti-inflammatory agents (NSAIDs) as directed in the bottle to reduce fever and/pain/headache. Avoid smoking/second-hand smoke. Limit visits to areas with large crowds. Please schedule a follow-up visit with your personal physician for further evaluation and treatment within 3-5days. Including recheck and discussion of your blood pressure. If your symptoms persist, change or worsen significantly before you can contact your personal physician then please, without delay, go to the emergency department for further evaluation. Patient Language: Estonian Prescriptions: New azithromycin 250 mg tablet See Rx Instructions .ROUTE .COMPLEX Qty: 6 0RF Rx Instructions: For 250 mg dose pack: take 500 mg today (day 1), then 250 mg for 4 days (days 2-5) No Action ondansetron 4 mg tablet,disintegrating Gammagard S-D (IgA < 1 mcg/mL) 10 gram recon soln IV Gammagard Liquid 10 % solution 35 g IV MONTHLY oxybutynin chloride 5 mg tablet extended release 24hr 5 mg PO DAILY Qty: 90 3RF Follow-up/Referrals: Nitza Lamas MD [Primary Care Provider, Internal Medicine] Time of Disposition: 12:05
[2025-05-10 11:32] VITALS: BP 127/80; PULSE 109; RESP 18; TEMP 36.3; O2SAT 98
[2025-05-10 11:57] LABS: EDSTREPNEGPOS1 Negative (Negative)
[2025-05-10 12:07] LABS: EDCOVIDSCREEN Negative (Negative); EDINFLUASCREEN Negative (Negative); EDINFLUBSCREEN Negative (Negative)
== END 2025-05-10 12:07 | disposition home or self-care (01) ==
PROVIDERS: Emergency Provider Nurse Practitioner Family; PCP Internal Medicine
DX: J06.9 Acute upper respiratory infection, unspecified (principal); R05.9 Cough, unspecified; Z20.822 Contact with and (suspected) exposure to COVID-19; D84.9 Immunodeficiency, unspecified
CPT/HCPCS: 87081; 87426; 87804; 87880; 99213; G0463

== ENCOUNTER 2025-07-23 11:27 | Outpatient (CLI) | payer OTHER, SELFPAY ==
[2025-07-23 12:39] LABS: Immunoglobulin G 943 mg/dL (700-1600)
== END 2025-07-23 11:28 | disposition home or self-care (01) ==
PROVIDERS: PCP Internal Medicine
DX: D83.9 Common variable immunodeficiency, unspecified (principal)
CPT/HCPCS: 36415; 82784